=== PATIENT | female | born 1960 | race Caucasian/White ===

== ENCOUNTER 2022-02-25 16:03 | Emergency (ER) | payer OTHER, SELFPAY ==
[2022-02-25 16:07] VITALS: BP 132/72; PULSE 63; RESP 16; TEMP 36.7; O2SAT 98
[2022-02-25 16:29] VITALS: BP 132/72; PULSE 63; RESP 16; TEMP 36.7; O2SAT 98
--- NOTE | 2022-02-25 17:55 | ED.WOUNDLAC ---
HPI - Wound/Laceration General Chief Complaint: Wound/Laceration Stated Complaint: surgical wound dehiss Time Seen by Provider: 02/25/22 17:26 Source: patient Mode of arrival: ambulatory History of Present Illness HPI narrative: 61 year old female presents today with concerns for losing a stitch from her surgical wound. Patient had surgery on 02/21 for trigger finger in her left thumb. Patient removed the dressing today per surgeons instructions and said she lost a stitch while driving. No bleeding, redness, warmth, or purulent drainage. Patient deneis pain just concerned the wound will not heal. Related Data Allergies Allergy/AdvReac Type Severity Reaction Status Date / Time No Known Allergies Allergy Verified 02/25/22 16:32 Review of Systems Review of Systems: CONSTITUTIONAL: Denies fever, chills, or sweats. EYES: Denies visual changes, redness, or discharge. ENT: Denies rhinorrhea, congestion, sore throat, or otalgia. CARDIOVASCULAR: Denies chest pain, palpitations, or edema. RESPIRATORY: Denies cough or dyspnea. GASTROINTESTINAL: Denies abdominal pain, nausea, vomiting, or diarrhea. GENITOURINARY: Denies dysuria or hematuria. SKIN: Surgical wound left thumb 1 stitch came out. Denies rash or itching. MUSCULOSKELETAL: Denies back pain, joint pain, or myalgia. NEUROLOGIC: Denies headache, numbness, dizziness, or weakness. PSYCHIATRIC: Denies anxiety or depression. Exam Narrative: GENERAL: Well-appearing, well-nourished, and in no acute distress. HEAD: Normocephalic, atraumatic. EYES: PERRLA and EOMI. ENT: Nares clear, no rhinorrhea or epistaxis. Mucous membranes moist. Oropharynx without tonsillar hypertrophy exudate or other lesions. Bilateral TMs pearly terrazas nonbulging NECK: Supple. No adenopathy or masses. No carotid bruits or JVD CHEST: Clear to auscultation. No respiratory distress. No wheezes rales or rhonchi HEART: Regular rate and rhythm. No murmur heard. Normal peripheral pulses. ABDOMEN: Soft, nontender, nondistended, normal active bowel sounds. EXTREMITIES: Normal range of motion. No edema. SKIN: Base of left thumb palmar side small approximate 2 cm laceration with 2 sutures noted. 1 suture missing per patient in middle of wound. Wound approximated. Small 1 mm gap in the middle of wound. No bleeding noted, no erythema, no purulent drainage. warm, dry, no rash. NEURO: No focal deficits. Alert and oriented x3. PSYCH: Normal mood and affect. Course Course Emergency Course: Patient with concerns of opening the wound more with using her thumb. Discussed cleaning wound and redressing hand to limit movement. Patient in agreement with plan of care. Will discharge after dressing in place. Vital Signs Vital signs: Vital Signs Temperature 36.7 C 02/25/22 16:07 Pulse Rate 63 02/25/22 16:07 Respiratory Rate 16 02/25/22 16:07 Blood Pressure 132/72 02/25/22 16:07 Pulse Oximetry 98 02/25/22 16:07 Temperature 36.7 C 02/25/22 16:29 Pulse Rate 63 02/25/22 16:29 Respiratory Rate 16 02/25/22 16:29 Blood Pressure 132/72 02/25/22 16:29 Pulse Oximetry 98 02/25/22 16:29 MDM - Wound/Laceration Differential Diagnosis Differential diagnosis: Likely laceration and other Discharge Plan Discharge Clinical Impression: Encounter for assessment of wound Patient Disposition: Home, Self-Care Condition: Stable Instructions: Antibiotic Form, Laceration (ED) Additional Instructions: Call surgeon on Monday to let them know. Keep follow-up appointment for Monday unless they want to see you sooner. Keep wound clean and dry. Limit movement to left thumb to endorse healing. Return for any new or worsening symptoms. Follow-up/Referrals: Luann,BETTYE Sky [Primary Care Provider] - Time of Disposition: 18:06
== END 2022-02-25 18:35 | disposition home or self-care (01) ==
PROVIDERS: Emergency Provider Nurse Practitioner Family; PCP Physician Assistant
DX: Z48.01 Encounter for change or removal of surgical wound dressing (principal)
CPT/HCPCS: 99282